=== PATIENT | male | born 1985 | race Two or more races ===

== ENCOUNTER 2022-05-09 13:37 | Emergency (ER) | payer OTHER ==
[~2022-05-09] VITALS: Ht 185.4 cm; Wt 80.0 kg
[2022-05-09 14:40] VITALS: BP 138/77
[2022-05-09] MEDS ORDERED: IBUP-2070 PO (15:07)
[2022-05-09] MEDS ORDERED: ACET-3385 PO (15:10)
== END 2022-05-09 17:00 | disposition home or self-care (01) ==
LOC: EMS 13:37
DX: S82.64XA Nondisplaced fracture of lateral malleolus of right fibula, initial encounter for closed fracture (principal); X50.1XXA Overexertion from prolonged static or awkward postures, initial encounter; Y93.02 Activity, running; Y92.89 Other specified places as the place of occurrence of the external cause; Y99.8 Other external cause status
CPT/HCPCS: 29515; 99284; 73610-TC; 73630-TC; Z7502